=== PATIENT | female | born 1965 | race American Indian/Alaskan Native ===

== ENCOUNTER 2017-09-08 14:34 | Outpatient (CLI) | payer BC ==
--- NOTE | 2017-09-08 15:32 | Mammography Report ---
BILATERAL DIGITAL SCREENING MAMMOGRAM with CAD: 09/08/17 14:34:00 CLINICAL: Routine screening. COMPARISON: 10/11/14 FINDINGS: The breasts are mostly fatty with a few bilateral scattered fibroglandular densities.No mass, architectural distortion or suspicious calcifications. IMPRESSION: No mammographic evidence of malignancy. BI-RADS CATEGORY: 1 -- Negative RECOMMENDATION: Routine mammographic screening in one year. COMMENT: Patient follow-up letters are generated by our [employer] application.
== END 2017-09-08 14:35 | disposition home or self-care (01) ==
LOC: SPVWC 14:34
DX: Z12.31 Encounter for screening mammogram for malignant neoplasm of breast (principal)
CPT/HCPCS: 77067

== ENCOUNTER 2018-02-28 08:20 | Outpatient (CLI) | payer BC ==
--- NOTE | 2018-02-28 11:03 | Ultrasound Report ---
TRANSABDOMINAL AND TRANSVAGINAL PELVIC ULTRASOUND: 02/28/18 08:20:00 CLINICAL: Dysfunctional uterine bleeding. FINDINGS: Transabdominal and transvaginal pelvic ultrasound demonstrated an enlarged fibroid uterus measuring 14.7 x 7.4 x 10.9 cm. The largest fibroid is located posterior subserosal in the uterine fundus and measures 5.0 x 4.4 x 4.7 cm. A posterior intramural fibroid in the uterine body measures 4.9 x 4.3 x 5.4 cm. A submucosal fibroid measures 2.9 x 2.5 x 2.1 cm. The endometrium is abnormally thickened with a heterogeneous echo pattern and measures 24 mm AP thickness. The ovaries were only identified with transabdominal imaging. The right ovary measures 5.8 x 3.7 x 4.8cm and a right ovarian cyst measures 3.5 x 2.9 x 2.8 cm. A normal left ovary measures 2.0 x 1.7 x 1.6cm. No adnexal mass. No free fluid. Normal urinary bladder. IMPRESSION: 1. A 15 cm fibroid uterus with a dominant 5.4 cm fibroid. 2. Abnormal endometrium with thickening and a heterogeneous echo pattern suggesting either endometrial hyperplasia or tumor. 3. A 3.5 cm cyst of the right ovary. 4. Normal left ovary.
== END 2018-02-28 08:21 | disposition home or self-care (01) ==
LOC: SPVWC 08:20
PROVIDERS: ATTEND Obstetrics & Gynecology
DX: D25.9 Leiomyoma of uterus, unspecified (principal); N83.201 Unspecified ovarian cyst, right side
CPT/HCPCS: 76830; 76856